=== PATIENT | female | born 2000 | race African-American/Black ===

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

== ENCOUNTER 2020-03-11 07:01 | Emergency (ER) | payer OTHER ==
--- NOTE | 2020-03-31 22:48 | EKG ---
Test Reason : Blood Pressure : / mmHG Vent. Rate : 075 BPM Atrial Rate : 075 BPM P-R Int : 128 ms QRS Dur : 088 ms QT Int : 382 ms P-R-T Axes : 053 063 038 degrees QTc Int : 426 ms Normal sinus rhythm with sinus arrhythmia Minimal voltage criteria for LVH, may be normal variant Nonspecific ST abnormality Abnormal ECG Confirmed by CODY BOYD, JUAN (12), video news editor MEGHAN URIAS (40) on 03/31/2020 10:47:55 PM Referred By: Confirmed By:JUAN ROSS MD
== END 2020-03-11 07:43 | disposition left against medical advice (07) ==
LOC: ERS 07:01
DX: Z53.21 Procedure and treatment not carried out due to patient leaving prior to being seen by health care provider (principal)
CPT/HCPCS: 93005

== ENCOUNTER 2020-03-11 08:34 | Emergency (ER) | payer OTHER ==
[2020-03-11] MEDS ORDERED: hydrOXYzine 25 MG TAB ONE (09:45)
== END 2020-03-11 09:55 | disposition home or self-care (01) ==
LOC: ERS 08:34
DX: F41.0 Panic disorder [episodic paroxysmal anxiety] (principal)
CPT/HCPCS: 93005; 99283

== ENCOUNTER 2020-05-04 11:07 | Emergency (ER) | payer OTHER ==
[2020-05-04 11:38] LABS: #Basophils 0.1 thou/uL (0.0-0.2); #Eosinphils 0.1 thou/uL (0.0-0.7); #Lymphocytes 2.5 thou/uL (1.20-3.40); #Monocytes 0.6 thou/uL (0.11-0.59); #Neutrophils 3.4 thou/uL (1.40-6.50); %Basophils 0.9 % (0.0-1.0); %Lymphocytes 37.6 % (28.0-48.0); %Monocytes 9.5 % (0.0-4.0); %Neutrophils 50.9 % (31.0-61.0); Hemoglobin 12.9 g/dL (12.0-16.0); Mean Corpuscular HGB CONC 33.3 g/dL (32.0-36.0); Mean Corpuscular Hemoglobin 29.1 pg (25.0-35.0); Mean Corpuscular Volume 87.3 fL (78.0-98.0); Mean Platelet Volume 7.8 fL (7.4-10.4); Platelet Count 267 thou/uL (130-400); RBC Distribution Width 14.9 % (11.5-14.5); Red Blood Cell (RBC) Count 4.41 mill/uL (4.00-5.20); White Blood Cell (WBC) Count 6.6 thou/uL (4.8-10.8)
[2020-05-04 11:58] LABS: Anion Gap 15 mmol/L (10-20); BUN (Urea Nitrogen) 12 mg/dL (8.4-21.0); Calc. Creatinine Clearance 0 mL/min (70-130); Calcium 9.2 mg/dL (7.8-10.44); Carbon Dioxide 20 mmol/L (22-29); Chloride 107 mmol/L (98-107); Glucose 96 mg/dL (70-105); Potassium 3.9 mmol/L (3.5-5.1); Sodium 138 mmol/L (136-145)
== END 2020-05-04 13:41 | disposition left against medical advice (07) ==
LOC: ERS 11:07
DX: Z53.21 Procedure and treatment not carried out due to patient leaving prior to being seen by health care provider (principal)
CPT/HCPCS: 36415; 80048; 85025

== ENCOUNTER 2020-07-24 01:14 | Emergency (ER) | payer MEDICAID, OTHER | END 2020-07-24 02:07 | disposition home or self-care (01) | LOC: ERS 01:14 | DX: R00.2 Palpitations (principal) | CPT/HCPCS: 93005 ==

== ENCOUNTER 2020-08-28 16:29 | Emergency (ER) | payer MEDICAID ==
[2020-08-28] MEDS ORDERED: Lidocaine Viscous Sol 2% 15 ml UD Cup ONE (18:11)
[2020-08-28] MEDS ORDERED: Mag-Al 1200 mg/1200 mg/30 ML UDCUP ONE (18:11)
== END 2020-08-28 18:32 | disposition home or self-care (01) ==
LOC: ERS 16:29
DX: R10.13 Epigastric pain (principal)
CPT/HCPCS: 99283

== ENCOUNTER 2020-09-14 11:57 | Emergency (ER) | payer MEDICAID ==
[2020-09-14 13:28] LABS: Bilirubin Moderate (Negative); Blood, Urine Large (Negative); Glucose, Urine (Dipstick) Negative (Negative); Ketone, Urine > or equal to 80 mg/dL (Negative); Leukocyte Negative (Negative); Nitrite Negative (Negative); Protein, Urine (Dipstick) 100 mg/dL (Neg-Trace)
[2020-09-14 13:32] LABS: Clarity Hazy (Clear)
[2020-09-14 13:35] LABS: RBC/HPF 21-50 HPF (0-3); WBC/HPF 0-3 HPF (0-3)
[2020-09-14 13:36] LABS: Bacteria/HPF Rare-Few HPF (None Seen); Calcium Oxalate Crystals Rare HPF (None Seen); Mucous/LPF 1+ LPF (<2+)
[2020-09-14 13:41] LABS: Specific Gravity, Urine 1.045 (1.002-1.036)
[2020-09-14 13:50] LABS: Mean Corpuscular Hemoglobin 28.6 pg (25.0-35.0); Mean Corpuscular Volume 86.8 fL (78.0-98.0); Mean Platelet Volume 8.4 fL (7.4-10.4); Platelet Count 290 thou/uL (130-400); RBC Distribution Width 14.7 % (11.5-14.5); Red Blood Cell (RBC) Count 4.18 mill/uL (4.00-5.20); White Blood Cell (WBC) Count 7.9 thou/uL (4.8-10.8)
[2020-09-14 13:56] LABS: BHCG - Serum Negative (NEGATIVE); Pregs Control Background? CLEAR/WHITE (CLR/WHITE); Pregs Control Bar Appear? YES (CONTROL BAR)
[2020-09-14 14:12] LABS: Eosinophils 1 % (0-10); Lymphocytes 26 % (28-48); MDiff Complete? YES; Monocytes 11 % (0-4); Neutrophil 61 % (31-61); Platelet Morphology Comment Appears Adequate; RBC Morphology Normal
[2020-09-14 14:18] LABS: ALT (SGPT) 10 U/L (8-55); AST (SGOT) 17 U/L (5-30); Albumin 4.5 g/dL (3.5-5.0); Alkaline Phosphatase 93 U/L (40-100); Anion Gap 17 mmol/L (10-20); BUN (Urea Nitrogen) 7 mg/dL (8.4-21.0); Bilirubin, Total 0.5 mg/dL (0.2-1.2); Calc. Creatinine Clearance 0 mL/min (70-130); Calcium 10.3 mg/dL (7.8-10.44); Carbon Dioxide 22 mmol/L (22-29); Chloride 103 mmol/L (98-107); Globulin 3.7 g/dL (2.4-3.5); Glucose 90 mg/dL (70-105); Potassium 3.1 mmol/L (3.5-5.1); Protein, Total 8.2 g/dL (6.0-8.3); Sodium 139 mmol/L (136-145)
[2020-09-14] MEDS ORDERED: Potassium Chloride 20 MEQ TAB ONE (14:42)
[2020-09-14] MEDS ORDERED: Ondansetron PF 4 MG/2 ML Vial ONE (14:42)
[2020-09-14 15:13] LABS: Amphetamine Not Detected (NotDetected); Barbiturates Screen Not Detected (NotDetected); Benzodiazepine Screen Not Detected (NotDetected); Cocaine Metabolite Screen Not Detected (NotDetected); Methadone Not Detected (NotDetected); Methamphetamine Not Detected (NotDetected); Opiate Screen Not Detected (NotDetected); Oxycodone Screen Not Detected (NotDetected); Phencyclidine (PCP) Not Detected (NotDetected); THC/Cannabinoid Screen Not Detected (NotDetected); Tricyclic Screen Not Detected (NotDetected)
== END 2020-09-14 16:54 | disposition home or self-care (01) ==
LOC: ERS 11:57
DX: E86.0 Dehydration (principal); N93.9 Abnormal uterine and vaginal bleeding, unspecified; R00.0 Tachycardia, unspecified; K21.9 Gastro-esophageal reflux disease without esophagitis; Z79.899 Other long term (current) drug therapy
CPT/HCPCS: 36416; 80053; 80306; 81003; 81015; 83735; 84443; 84703; 85025; 93005; 96374; J2405

== ENCOUNTER 2022-02-04 09:17 | Emergency (ER) | payer OTHER | END 2022-02-04 09:38 | disposition left against medical advice (07) | LOC: ERS 09:17 | DX: Z53.21 Procedure and treatment not carried out due to patient leaving prior to being seen by health care provider (principal) ==

== ENCOUNTER 2023-03-10 13:24 | Emergency (ER) | payer MEDICAID, OTHER | END 2023-03-10 15:37 | disposition home or self-care (01) | LOC: ERS 13:24 | DX: O99.891 Other specified diseases and conditions complicating pregnancy (principal); R10.9 Unspecified abdominal pain | CPT/HCPCS: 99284 ==

== ENCOUNTER 2024-08-25 13:49 | Emergency (ER) | payer SELFPAY ==
[2024-08-25] MEDS ORDERED: Lidocaine 1% (PF) 30 ML VIAL ONE (13:55)
[2024-08-25] MEDS ORDERED: Amoxicillin/Potassium Clav 875 MG TAB ONE (14:35)
== END 2024-08-25 14:36 | disposition home or self-care (01) ==
LOC: ERS 13:49
DX: L03.012 Cellulitis of left finger (principal)
CPT/HCPCS: 26010